=== PATIENT | male | born 1995 | race African-American/Black ===

== ENCOUNTER 2019-12-02 00:02 | Emergency (ER) | payer SELFPAY ==
[2019-12-02] MEDS ORDERED: Acetaminophen/HYDROcodone 325-5 MG Tab PO ONE (00:22)
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
[2019-12-02] MEDS ORDERED: Proparacaine 0.5% Ophth Soln 15 ML Bottle EYELF STA (00:55)
[2019-12-02] MEDS ORDERED: Fluorescein 1 MG Ophth Strip EYELF STA (00:55)
[2019-12-02] MEDS ORDERED: Erythromycin Base 0.5% Ophth Oint 1 GM Tube EYELF STA (01:05)
--- NOTE | 2019-12-02 07:05 | CR ---
Left hand: 4 views of the left hand were obtained. Comparison: No prior hand exam. Joint spaces are preserved. No fracture, dislocation or other bony abnormality is appreciated. Impression: 1. No abnormality is identified on left hand exam. Diagnostic code #1 This report was dictated in MDT
== END 2019-12-02 01:26 | disposition home or self-care (01) ==
LOC: JD.ED 00:02
DX: T23.152A Burn of first degree of left palm, initial encounter (principal); T20.10XA Burn of first degree of head, face, and neck, unspecified site, initial encounter; S05.02XA Injury of conjunctiva and corneal abrasion without foreign body, left eye, initial encounter; F17.210 Nicotine dependence, cigarettes, uncomplicated
CPT/HCPCS: 73130; 99283; A9270; 99284